=== PATIENT | male | born 1960 | race Caucasian/White ===

== ENCOUNTER → 2017-04-14 | Outpatient (CLI) | payer BC ==
[2017-04-14 08:19] LABS: CHLORIDE,CL 111 mmol/L (98-110); SODIUM,NA 142 mmol/L (136-146)
== END ==
LOC: MW.CHFP 07:30
PROVIDERS: ATTEND Nurse Practitioner Family
DX: Z00.00 Encounter for general adult medical examination without abnormal findings (principal); I10 Essential (primary) hypertension; R73.09 Other abnormal glucose
CPT/HCPCS: 36415; 80053; 80061; 83036; G0103

== ENCOUNTER 2023-08-30 08:24 | Day surgery (SDC) | payer BC ==
[~2023-08-30 08:24] MED LIST: Lactated Ringers 1,000 ML IV SCH; propofoL 50 ML ONE
[2023-08-30] MEDS ORDERED: Lidocaine 2% 5 ML SDV ONE (11:06)
[2023-08-30] MEDS ORDERED: Lactated Ringers 1,000 ML IV SCH (11:30)
[2023-08-30 12:10] VITALS: BP 104/65; PULSE 91
== END 2023-08-30 12:01 | disposition home or self-care (01) ==
LOC: MW.SDS 08:24
PROVIDERS: ATTEND Surgery
DX: Z12.11 Encounter for screening for malignant neoplasm of colon (principal); K57.30 Diverticulosis of large intestine without perforation or abscess without bleeding; E78.00 Pure hypercholesterolemia, unspecified; I10 Essential (primary) hypertension; F10.90 Alcohol use, unspecified, uncomplicated; Z79.899 Other long term (current) drug therapy; Z80.0 Family history of malignant neoplasm of digestive organs
CPT/HCPCS: 45378; J2704; J7120; 00812; J3490